=== PATIENT | male | born 1990 | race Caucasian/White ===

== ENCOUNTER 2016-08-23 20:16 | Emergency (ER) | payer MEDICAID ==
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
[2016-08-23 22:17] LABS: BASOPHIL % 0.2 % (0.0-0.4); Eosinophil % 1.6 % (0.00-5.0); Granulocytes % 52.5 % (36.0-66.0); Lymphocytes % 37.5 % (24.0-44.0); Mean Cell Volume 86.9 fl (78-100); Mean Corpuscular Hemoglobin 29.9 pg (26-32); Mean Platelet Volume 9.5 fl (6-9.5); Monocytes % 8.2 % (0.0-12.0); Platelet Count 131 K/mm3 (150-450); Red Blood Count 4.98 M/mm3 (4.1-5.6); Red Cell Distribution Width 13.1 % (11.5-14.0); White Blood Count 8.8 K/mm3 (4.0-10.5)
[2016-08-23 22:34] LABS: MAGNESIUM 1.9 mg/dL (1.8-2.4)
[2016-08-23 22:38] LABS: COMPLETE URINE MICROSCOPIC? NO; Collection Type CLEAN CATCH; Ph 8.5 (5-6)
[2016-08-23 22:39] LABS: ALBUMIN 3.9 g/dL (3.4-5.0); ALKALINE PHOSPHATASE 59 U/L (46-116); ANION GAP 11.1 MEQ/L (5-15); BILIRUBIN,TOTAL 0.2 mg/dL (0.2-1.0); BLOOD UREA NITROGEN 9 mg/dL (9-20); CHLORIDE 101 mEq/L (98-107); Carbon Dioxide 30.7 mEq/L (21-32); Glucose 93 MG/DL (70-110); Potassium 3.6 mEq/L (3.5-5.1); SGOT/AST 29 U/L (15-37); SGPT/ALT 77 U/L (12-78); SODIUM 139 mEq/L (136-145); Total Protein 7.4 gm/dL (6.4-8.2)
[2016-08-23 22:41] LABS: ACETAMINOPHEN < 2.0 ug/ml (10-30)
[2016-08-23] MEDS ORDERED: TYLENOL 325 MG PO ONE (23:05)
[2016-08-23] MEDS ORDERED: TYLENOL 325 MG ONE (23:07)
[2016-08-24] MEDS ORDERED: Valium 5 MG PO ONE (00:11)
[2016-08-24] MEDS ORDERED: Ativan 2 MG/1 ML VIAL IV ONE (09:09)
[2016-08-24] MEDS ORDERED: Ativan 2 MG/1 ML VIAL ONE (09:31)
[2016-08-24 12:11] VITALS: BP 140/89; PULSE 89; O2SAT 99
== END 2016-08-24 12:57 | disposition short-term general hospital (02) ==
LOC: ED 20:16
DX: R45.851 Suicidal ideations (principal); F22 Delusional disorders; F06.8 Other specified mental disorders due to known physiological condition; F20.9 Schizophrenia, unspecified
CPT/HCPCS: 36415; 80053; 80307; 80320; 81002; 82150; 83690; 83735; 83986; 85025; 96372; 99285; G0481; J2060; A9270-GY

== ENCOUNTER 2017-02-24 20:47 | Emergency (ER) | payer OTHER ==
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
[2017-02-24 21:38] LABS: BASOPHIL % 0.4 % (0.0-0.4); Eosinophil % 2.5 % (0.00-5.0); Granulocytes % 44.2 % (36.0-66.0); Lymphocytes % 42.3 % (24.0-44.0); Mean Cell Volume 86.5 fl (78-100); Mean Platelet Volume 10.2 fl (6-9.5); Monocytes % 10.6 % (0.0-12.0); Platelet Count 127 K/mm3 (150-450); Red Blood Count 5.65 M/mm3 (4.1-5.6); Red Cell Distribution Width 13.8 % (11.5-14.0); White Blood Count 7.6 K/mm3 (4.0-10.5)
[2017-02-24 21:39] LABS: Mean Corpuscular Hemoglobin 29.3 pg (26-32)
[2017-02-24] MEDS ORDERED: Sodium Chloride 0.9% 1000 ML 1,000 ML IV STA (21:43)
[2017-02-24] MEDS ORDERED: Sodium Chloride 0.9% 1000 ML 1,000 ML ONE (22:00)
[2017-02-24 22:02] LABS: ALBUMIN 4.1 g/dL (3.4-5.0); ALKALINE PHOSPHATASE 75 U/L (46-116); ANION GAP 13.1 MEQ/L (5-15); BLOOD UREA NITROGEN 10 mg/dL (9-20); CHLORIDE 105 mEq/L (98-107); Carbon Dioxide 29.2 mEq/L (21-32); ETHYL ALCOHOL < 0.010 % (0.00-0.01); Glucose 97 MG/DL (70-110); Potassium 3.5 mEq/L (3.5-5.1); SGOT/AST 34 U/L (15-37); SGPT/ALT 79 U/L (12-78); SODIUM 144 mEq/L (136-145); Total Protein 8.2 gm/dL (6.4-8.2)
[2017-02-24 22:05] LABS: ACETAMINOPHEN < 2.0 ug/ml (10-30)
[2017-02-24] MEDS ORDERED: Ativan 2 MG/1 ML VIAL IV ONE ×2 (22:44→23:11)
[2017-02-24] MEDS ORDERED: Ativan 2 MG/1 ML VIAL ONE ×2 (22:45→23:21)
[2017-02-24 22:58] LABS: Collection Type CLEAN CATCH
[2017-02-24 22:59] LABS: ADD URINE CULTURE? NO (NO); Bilirubin NEGATIVE (NEGATIVE); Blood NEGATIVE Ery/ul (0-5); COMPLETE URINE MICROSCOPIC? NO; Glucose NEGATIVE (NEGATIVE); Leukocyte Esterase NEGATIVE (NEGATIVE)
[2017-02-25] MEDS ORDERED: Ativan 2 MG/1 ML VIAL IV ONE (00:38)
[2017-02-25] MEDS ORDERED: Ativan 2 MG/1 ML VIAL ONE (00:41)
[2017-02-25 01:05] VITALS: BP 145/100; PULSE 105
[2017-02-25 01:10] VITALS: O2SAT 98
== END 2017-02-25 02:00 | disposition short-term general hospital (02) ==
LOC: ED 20:47
DX: F23 Brief psychotic disorder (principal); F20.0 Paranoid schizophrenia; F22 Delusional disorders; F19.10 Other psychoactive substance abuse, uncomplicated; R45.851 Suicidal ideations; I10 Essential (primary) hypertension; F41.9 Anxiety disorder, unspecified; F31.9 Bipolar disorder, unspecified
CPT/HCPCS: 36000; 36415; 80053; 80307; 81002; 85025; 93005; 96360; 96374; 96376; 99285; G0481; J2060

== ENCOUNTER 2017-04-06 16:30 | Emergency (ER) | payer OTHER ==
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
[2017-04-06] MEDS ORDERED: TYLENOL 325 MG ONE (17:04)
[2017-04-06] MEDS ORDERED: TYLENOL 325 MG PO STA (17:06)
[2017-04-06 17:13] LABS: BASOPHIL % 0.2 % (0.0-0.4); Eosinophil % 1.8 % (0.00-5.0); Granulocytes % 55.2 % (36.0-66.0); Lymphocytes % 32.3 % (24.0-44.0); Mean Cell Volume 86.1 fl (78-100); Mean Corpuscular Hemoglobin 29.9 pg (26-32); Mean Platelet Volume 9.5 fl (6-9.5); Monocytes % 10.5 % (0.0-12.0); Platelet Count 187 K/mm3 (150-450); Red Blood Count 5.81 M/mm3 (4.1-5.6); Red Cell Distribution Width 13.9 % (11.5-14.0); White Blood Count 12.4 K/mm3 (4.0-10.5)
[2017-04-06 17:32] LABS: Collection Type CLEAN CATCH
[2017-04-06 17:33] LABS: ADD URINE CULTURE? NO (NO); Bilirubin NEGATIVE (NEGATIVE); Blood NEGATIVE Ery/ul (0-5); COMPLETE URINE MICROSCOPIC? NO; Glucose NEGATIVE (NEGATIVE); Leukocyte Esterase NEGATIVE (NEGATIVE)
[2017-04-06 17:40] LABS: ALBUMIN 4.6 g/dL (3.4-5.0); ALKALINE PHOSPHATASE 89 U/L (46-116); ANION GAP 11.6 MEQ/L (5-15); BLOOD UREA NITROGEN 9 mg/dL (9-20); CHLORIDE 100 mEq/L (98-107); Carbon Dioxide 29.5 mEq/L (21-32); Glucose 87 MG/DL (70-110); Potassium 3.8 mEq/L (3.5-5.1); SGOT/AST 46 U/L (15-37); SGPT/ALT 85 U/L (12-78); SODIUM 137 mEq/L (136-145)
[2017-04-06 17:41] LABS: ACETAMINOPHEN < 2.0 ug/ml (10-30); ETHYL ALCOHOL < 0.010 % (0.00-0.01)
[2017-04-06] MEDS ORDERED: Nicoderm CQ 21 MG TOP ONE (18:10)
[2017-04-06] MEDS ORDERED: Nicoderm CQ 21 MG ONE (18:11)
[2017-04-06] MEDS ORDERED: Ativan 2 MG/1 ML VIAL IM ONE (18:26)
[2017-04-06] MEDS ORDERED: Ativan 2 MG/1 ML VIAL ONE (18:30)
[2017-04-06 23:43] VITALS: BP 142/93; PULSE 102; O2SAT 98
== END 2017-04-06 23:45 | disposition short-term general hospital (02) ==
LOC: ED 16:30
DX: F32.9 Major depressive disorder, single episode, unspecified (principal); R45.851 Suicidal ideations; F20.0 Paranoid schizophrenia; F19.10 Other psychoactive substance abuse, uncomplicated
CPT/HCPCS: 36415; 80053; 80307; 81002; 84443; 85025; 90791; 96372; 99285; G0481; J2060; Q3014; A9270-GY

== ENCOUNTER 2018-06-14 12:26 | Emergency (ER) | payer MEDICAID, OTHER ==
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
[2018-06-14 12:43] VITALS: BP 169/95; PULSE 102; O2SAT 100
[2018-06-14] MEDS ORDERED: XYLOCAINE 1% HCL 20 ML MDV ONE (13:08)
== END 2018-06-14 13:49 | disposition home or self-care (01) ==
LOC: ED 12:26
DX: S61.412A Laceration without foreign body of left hand, initial encounter (principal); I10 Essential (primary) hypertension; F41.9 Anxiety disorder, unspecified; F31.9 Bipolar disorder, unspecified; F20.0 Paranoid schizophrenia
CPT/HCPCS: 12001; 99283

== ENCOUNTER 2018-07-18 19:13 | Emergency (ER) | payer MEDICAID ==
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
[2018-07-18 19:56] LABS: BASOPHIL % 0.3 % (0.0-0.4); Basophil (Absolute #) 0.03 (0-0.4); Eosinophil % 3.9 % (0.00-5.0); Eosinophil (Absolute #) 0.37 (0-0.5); Granulocytes % 35.5 % (36.0-66.0); Hemoglobin 15.4 gm/dl (12.5-18.0); Lymphocyte (Absolute #) 4.92 (1.0-4.6); Lymphocytes % 51.5 % (24.0-44.0); Mean Corpuscular Hemoglobin 29.8 pg (26-32); Mean Corpuscular Hgb Concent. 34.2 g/dl (32-36); Mean Platelet Volume 9.5 fl (6-9.5); Monocyte (Absolute #) 0.84 (0.0-1.3); Monocytes % 8.8 % (0.0-12.0); Platelet Count 174 K/mm3 (150-450); Red Blood Count 5.17 M/mm3 (4.1-5.6); Red Cell Distribution Width 13.7 % (11.5-14.0); White Blood Count 9.6 K/mm3 (4.0-10.5)
[2018-07-18 20:07] LABS: ALBUMIN 4.4 g/dL (3.5-5.0); ALKALINE PHOSPHATASE 66 U/L (38-126); ANION GAP 13.3 MEQ/L (5-15); BLOOD UREA NITROGEN 13 mg/dL (9-20); CHLORIDE 104 mmol/L (98-107); Calcium 9.6 mg/dL (8.4-10.2); Carbon Dioxide 27 mmol/L (22-30); Creatinine 1 0.98 mg/dL (0.66-1.25); Glucose 88 mg/dL (74-106); SGOT/AST 38 U/L (17-59); SGPT/ALT 70 U/L (0-50); SODIUM 141 mmol/L (137-145); Total Protein 7.7 g/dL (6.3-8.2)
[2018-07-18 20:11] LABS: ACETAMINOPHEN < 10 ug/ml (10-30); ETHYL ALCOHOL < 10 mg/dL (0-10); SALICYLATE < 1.0 mg/dL (2-20)
[2018-07-18] MEDS ORDERED: Geodon 20 MG INJ IM ONE ×2 (20:24→20:27)
[2018-07-18 20:55] LABS: Appearance CLEAR (CLEAR); Bacteria NONE SEEN /HPF (NEGATIVE); Bilirubin NEGATIVE (NEGATIVE); Blood SMALL Ery/ul (0-5); Glucose NEGATIVE (NEGATIVE); Ketones NEGATIVE (NEGATIVE); Leukocyte Esterase SMALL (NEGATIVE); Mucus SLIGHT /HPF (NEGATIVE); Nitrite NEGATIVE (NEGATIVE); Protein,Urine Dip NEGATIVE (Negative); Specific Gravity 1.009 (1.005-1.025); Urobilinogen NEGATIVE mg/dL (0-1)
[2018-07-18 21:00] LABS: Amphetamine,Urine NEGATIVE (NEGATIVE); Barbiturate,Urine NEGATIVE (NEGATIVE); Benzodiazepine,Urine NEGATIVE (NEGATIVE); Cocaine,Urine NEGATIVE (NEGATIVE); Methadone,Urine NEGATIVE (NEGATIVE); Opiate,Urine NEGATIVE (NEGATIVE); PCP,Urine NEGATIVE (NEGATIVE); THC,Urine NEGATIVE (NEGATIVE)
[2018-07-18] MEDS ORDERED: KEFLEX 500 MG PO ONE (21:08)
[2018-07-18] MEDS ORDERED: KEFLEX 500 MG ONE (21:25)
[2018-07-18 21:33] VITALS: O2SAT 100
[2018-07-18 22:07] VITALS: PULSE 75
[2018-07-18 23:40] VITALS: BP 136/83
== END 2018-07-19 00:24 | disposition home or self-care (01) ==
LOC: ED 19:13
DX: F20.9 Schizophrenia, unspecified (principal); F20.0 Paranoid schizophrenia; R44.3 Hallucinations, unspecified; R45.851 Suicidal ideations; R45.850 Homicidal ideations; F41.9 Anxiety disorder, unspecified; F31.9 Bipolar disorder, unspecified
CPT/HCPCS: 36415; 80053; 80307; 81001; 84443; 85025; 87086; 93005; 96372; 99284; G0481; J3486; A9270-GY; G0480

== ENCOUNTER 2019-05-20 11:06 | Emergency (ER) | payer OTHER ==
[2019-05-20 11:42] VITALS: BP 150/107
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
[2019-05-20] MEDS ORDERED: BACTRIM DS TABLET PO ONE ×2 (11:49→11:54)
[2019-05-20] MEDS ORDERED: NORCO 5/325 MG PO ONE (11:49)
[2019-05-20] MEDS ORDERED: NORCO 5/325 MG ONE (11:54)
[2019-05-20 12:12] VITALS: PULSE 78; O2SAT 98
== END 2019-05-20 12:13 | disposition home or self-care (01) ==
LOC: ED 11:06
DX: L03.317 Cellulitis of buttock (principal); I10 Essential (primary) hypertension; Z72.0 Tobacco use; F41.9 Anxiety disorder, unspecified
CPT/HCPCS: 99283; A9270-GY

== ENCOUNTER 2019-07-16 16:59 | Emergency (ER) | payer OTHER ==
[2019-07-16] MEDS ORDERED: XYLOCAINE 1% HCL 20 ML MDV IJ ONE (17:00)
[2019-07-16] MEDS ORDERED: TORAdol 30 mg Injection IM ONE (17:37)
[2019-07-16] MEDS ORDERED: Adacel Vial IM ONE ×2 (18:25→18:40)
[2019-07-16] MEDS ORDERED: Rocephin 1000 MG INJ IM ONE (18:26)
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
[2019-07-16 18:35] VITALS: BP 128/93; PULSE 96; O2SAT 99
[2019-07-16] MEDS ORDERED: TORAdol 30 mg Injection ONE (18:39)
[2019-07-16] MEDS ORDERED: Rocephin 1000 MG INJ ONE (18:39)
--- NOTE | 2019-07-17 08:19 | XRAY ---
Indication: Pain and swelling. Comparison: None 3 views of the left 2nd finger demonstrates mild proximal soft tissue swelling. No other bony, articular, or soft tissue abnormalities.
== END 2019-07-16 19:11 | disposition home or self-care (01) ==
LOC: ED 16:59
DX: L03.012 Cellulitis of left finger (principal)
CPT/HCPCS: 73140; 90471; 90715; 96372; 99284; J0696; J1885

== ENCOUNTER 2019-09-20 22:31 | Emergency (ER) | payer OTHER ==
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
[2019-09-20 23:32] VITALS: BP 158/124; PULSE 90
[2019-09-20] MEDS ORDERED: TYLENOL 325 MG PO ONE (23:33)
[2019-09-20 23:34] VITALS: O2SAT 98
== END 2019-09-20 23:40 | disposition left against medical advice (07) ==
LOC: ED 22:31
DX: S09.90XA Unspecified injury of head, initial encounter (principal); S00.03XA Contusion of scalp, initial encounter; S01.01XA Laceration without foreign body of scalp, initial encounter; W22.8XXA Striking against or struck by other objects, initial encounter; Y93.89 Activity, other specified; Y92.89 Other specified places as the place of occurrence of the external cause; R51 Headache; I10 Essential (primary) hypertension; F31.9 Bipolar disorder, unspecified; F20.0 Paranoid schizophrenia; Z72.0 Tobacco use
CPT/HCPCS: 99283

== ENCOUNTER 2019-12-16 16:57 | Emergency (ER) | payer OTHER ==
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
[2019-12-16 17:56] LABS: Absolute Neutrophil Ct (ANC) 5.24 (1.4-6.9); BASOPHIL % 0.6 % (0.0-0.4); Basophil (Absolute #) 0.05 (0-0.4); Eosinophil (Absolute #) 0.26 (0-0.5); Hemoglobin 17.2 gm/dl (12.5-18.0); Lymphocyte (Absolute #) 2.38 (1.0-4.6); Lymphocytes % 27.5 % (24.0-44.0); Mean Cell Volume 89.6 fl (78-100); Mean Corpuscular Hemoglobin 30.8 pg (26-32); Mean Corpuscular Hgb Concent. 34.4 g/dl (32-36); Mean Platelet Volume 10.3 fl (7.5-11.0); Monocyte (Absolute #) 0.74 (0.0-1.3); Monocytes % 8.5 % (0.0-12.0); Neutrophil % 60.4 % (36.0-66.0); Platelet Count 166 K/mm3 (150-450); Red Blood Count 5.58 M/mm3 (4.1-5.6); Red Cell Distribution Width 13.3 % (11.5-14.0); White Blood Count 8.7 K/mm3 (4.0-10.5)
[2019-12-16 18:08] LABS: ALBUMIN 4.6 g/dL (3.5-5.0); ALKALINE PHOSPHATASE 80 U/L (38-126); ANION GAP 15.2 MEQ/L (5-15); BLOOD UREA NITROGEN 11 mg/dL (9-20); CHLORIDE 104 mmol/L (98-107); Calcium 9.5 mg/dL (8.4-10.2); Carbon Dioxide 22 mmol/L (22-30); Creatinine 1 0.82 mg/dL (0.66-1.25); EST GLOMERULAR FILTRATION RATE > 60.0 ML/MIN; Glucose 164 mg/dL (74-106); Potassium 3.6 mmol/L (3.5-5.1); SGOT/AST 76 U/L (17-59); SGPT/ALT 146 U/L (0-50); SODIUM 138 mmol/L (137-145); Total Protein 7.8 g/dL (6.3-8.2)
[2019-12-16] MEDS ORDERED: Ativan 1 MG PO ONE (18:10)
[2019-12-16] MEDS ORDERED: Ativan 1 MG ONE (18:12)
[2019-12-16 18:15] LABS: ACETAMINOPHEN < 10 ug/ml (10-30); ETHYL ALCOHOL < 10 mg/dL (0-10)
[2019-12-16 18:33] LABS: Amphetamine,Urine NEGATIVE (NEGATIVE); Barbiturate,Urine NEGATIVE (NEGATIVE); Benzodiazepine,Urine POSITIVE (NEGATIVE); Cocaine,Urine NEGATIVE (NEGATIVE); Methadone,Urine NEGATIVE (NEGATIVE); Opiate,Urine NEGATIVE (NEGATIVE); PCP,Urine NEGATIVE (NEGATIVE); THC,Urine NEGATIVE (NEGATIVE)
[2019-12-16 21:34] VITALS: O2SAT 98
[2019-12-16 22:10] VITALS: BP 156/120; PULSE 90
== END 2019-12-16 22:14 | disposition home or self-care (01) ==
LOC: ED 16:57
DX: F20.0 Paranoid schizophrenia (principal); F32.9 Major depressive disorder, single episode, unspecified
CPT/HCPCS: 36415; 80053; 80307; 85025; 93005; 99284; A9270-GY; G0480

== ENCOUNTER 2019-12-17 17:19 | Emergency (ER) | payer OTHER ==
[2019-12-17 17:46] LABS: Absolute Neutrophil Ct (ANC) 5.43 (1.4-6.9); BASOPHIL % 0.4 % (0.0-0.4); Basophil (Absolute #) 0.04 (0-0.4); Eosinophil (Absolute #) 0.27 (0-0.5); Hematocrit 50.6 % (42-50); Hemoglobin 17.4 gm/dl (12.5-18.0); Lymphocyte (Absolute #) 2.62 (1.0-4.6); Mean Cell Volume 88.9 fl (78-100); Mean Corpuscular Hemoglobin 30.6 pg (26-32); Mean Corpuscular Hgb Concent. 34.4 g/dl (32-36); Mean Platelet Volume 9.7 fl (7.5-11.0); Monocyte (Absolute #) 0.69 (0.0-1.3); Monocytes % 7.6 % (0.0-12.0); Platelet Count 157 K/mm3 (150-450); Red Blood Count 5.69 M/mm3 (4.1-5.6); Red Cell Distribution Width 13.3 % (11.5-14.0); White Blood Count 9.1 K/mm3 (4.0-10.5)
[2019-12-17 18:06] LABS: ALBUMIN 4.6 g/dL (3.5-5.0); ALKALINE PHOSPHATASE 78 U/L (38-126); ANION GAP 15.1 MEQ/L (5-15); BLOOD UREA NITROGEN 11 mg/dL (9-20); CHLORIDE 104 mmol/L (98-107); Calcium 9.7 mg/dL (8.4-10.2); Carbon Dioxide 24 mmol/L (22-30); Creatinine 1 0.77 mg/dL (0.66-1.25); EST GLOMERULAR FILTRATION RATE > 60.0 ML/MIN; Glucose 162 mg/dL (74-106); Potassium 3.6 mmol/L (3.5-5.1); SGOT/AST 81 U/L (17-59); SGPT/ALT 149 U/L (0-50); SODIUM 139 mmol/L (137-145); Total Protein 7.8 g/dL (6.3-8.2)
[2019-12-17 18:07] LABS: Amourphous Crystal FEW /HPF (NEGATIVE); Appearance CLOUDY (CLEAR); Bilirubin NEGATIVE (NEGATIVE); Blood NEGATIVE Ery/ul (0-5); Glucose NEGATIVE (NEGATIVE); Ketones NEGATIVE (NEGATIVE); Leukocyte Esterase SMALL (NEGATIVE); Nitrite NEGATIVE (NEGATIVE); Protein,Urine Dip 30 (Negative); Specific Gravity 1.017 (1.005-1.025); Urobilinogen NEGATIVE mg/dL (0-1)
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
[2019-12-17 18:14] LABS: Amphetamine,Urine NEGATIVE (NEGATIVE); Barbiturate,Urine NEGATIVE (NEGATIVE); Benzodiazepine,Urine POSITIVE (NEGATIVE); Cocaine,Urine NEGATIVE (NEGATIVE); Methadone,Urine NEGATIVE (NEGATIVE); Opiate,Urine NEGATIVE (NEGATIVE); PCP,Urine NEGATIVE (NEGATIVE); THC,Urine POSITIVE (NEGATIVE)
[2019-12-17 18:17] LABS: Bacteria NONE SEEN /HPF (NEGATIVE)
[2019-12-17 18:23] LABS: ACETAMINOPHEN < 10 ug/ml (10-30); ETHYL ALCOHOL < 10 mg/dL (0-10); SALICYLATE < 1.0 mg/dL (2-20)
[2019-12-17] MEDS ORDERED: TYLENOL EXTRA STRENGTH 500 MG PO PRN (18:54)
[2019-12-17] MEDS ORDERED: TYLENOL EXTRA STRENGTH 500 MG ONE (18:56)
[2019-12-17] MEDS ORDERED: TYLENOL EXTRA STRENGTH 500 MG PO STA (19:07)
[2019-12-17 21:06] VITALS: BP 158/133; PULSE 83; O2SAT 99
== END 2019-12-17 21:10 | disposition home or self-care (01) ==
LOC: ED 17:19
DX: F32.9 Major depressive disorder, single episode, unspecified (principal); R45.851 Suicidal ideations; Z79.899 Other long term (current) drug therapy; I10 Essential (primary) hypertension
CPT/HCPCS: 36415; 80053; 80307; 81001; 85025; 87086; 99284; A9270-GY; G0480

== ENCOUNTER 2020-01-11 15:32 | Emergency (ER) | payer OTHER ==
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
[2020-01-11 16:12] VITALS: BP 102/81; PULSE 92
[2020-01-11 17:57] VITALS: O2SAT 100
== END 2020-01-11 16:38 | disposition home or self-care (01) ==
LOC: ED 15:32
DX: L02.214 Cutaneous abscess of groin (principal); R10.30 Lower abdominal pain, unspecified; I10 Essential (primary) hypertension; F31.9 Bipolar disorder, unspecified; F41.9 Anxiety disorder, unspecified; F20.0 Paranoid schizophrenia
CPT/HCPCS: 99283

== ENCOUNTER 2020-01-17 21:36 | Emergency (ER) | payer OTHER ==
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
[2020-01-17] MEDS ORDERED: CLEOCIN 150 MG CAPSULE PO ONE (21:56)
[2020-01-17] MEDS ORDERED: CLEOCIN 150 MG CAPSULE ONE (21:58)
[2020-01-17] MEDS ORDERED: TORAdol 30 mg Injection IM ONE (22:15)
[2020-01-17 22:16] LABS: Amourphous Crystal FEW /HPF (NEGATIVE); Appearance SLIGHTLY CLOUDY (CLEAR); Bacteria RARE /HPF (NEGATIVE); Bilirubin NEGATIVE (NEGATIVE); Blood SMALL Ery/ul (0-5); Glucose NEGATIVE (NEGATIVE); Ketones NEGATIVE (NEGATIVE); Leukocyte Esterase MODERATE (NEGATIVE); Mucus SLIGHT /HPF (NEGATIVE); Nitrite NEGATIVE (NEGATIVE); Protein,Urine Dip 30 (Negative); Specific Gravity 1.006 (1.005-1.025); Urobilinogen NEGATIVE mg/dL (0-1); WBC 26-50 /HPF (0-5)
[2020-01-17] MEDS ORDERED: TORAdol 30 mg Injection ONE (22:20)
[2020-01-17 22:30] LABS: BASOPHIL % 0.4 % (0.0-0.4); Basophil (Absolute #) 0.04 (0-0.4); Eosinophil % 2.9 % (0.00-5.0); Eosinophil (Absolute #) 0.29 (0-0.5); Hematocrit 46.9 % (42-50); Hemoglobin 16.1 gm/dl (12.5-18.0); Lymphocyte (Absolute #) 4.11 (1.0-4.6); Lymphocytes % 40.5 % (24.0-44.0); Mean Cell Volume 89.2 fl (78-100); Mean Corpuscular Hemoglobin 30.6 pg (26-32); Mean Corpuscular Hgb Concent. 34.3 g/dl (32-36); Mean Platelet Volume 9.4 fl (7.5-11.0); Monocyte (Absolute #) 0.92 (0.0-1.3); Monocytes % 9.1 % (0.0-12.0); Neutrophil % 47.1 % (36.0-66.0); Platelet Count 202 K/mm3 (150-450); Red Blood Count 5.26 M/mm3 (4.1-5.6); Red Cell Distribution Width 13.2 % (11.5-14.0); White Blood Count 10.2 K/mm3 (4.0-10.5)
[2020-01-17] MEDS ORDERED: Rocephin 1000 MG INJ IM ONE (22:35)
[2020-01-17] MEDS ORDERED: Rocephin 1000 MG INJ ONE (22:40)
[2020-01-17 22:44] LABS: ALBUMIN 4.5 g/dL (3.5-5.0); ALKALINE PHOSPHATASE 59 U/L (38-126); AMYLASE 65 U/L (30-110); ANION GAP 13.3 MEQ/L (5-15); BLOOD UREA NITROGEN 9 mg/dL (9-20); CHLORIDE 106 mmol/L (98-107); Calcium 9.6 mg/dL (8.4-10.2); Carbon Dioxide 22 mmol/L (22-30); Creatinine 1 0.85 mg/dL (0.66-1.25); EST GLOMERULAR FILTRATION RATE > 60.0 ML/MIN; Glucose 147 mg/dL (74-106); LIPASE 79 U/L (23-300); Potassium 3.1 mmol/L (3.5-5.1); SGOT/AST 52 U/L (17-59); SODIUM 139 mmol/L (137-145); Total Protein 7.5 g/dL (6.3-8.2)
[2020-01-17 22:52] LABS: SGPT/ALT 89 U/L (0-50)
[2020-01-17] MEDS ORDERED: K-LYTE 25 MEQ PO ONE (23:15)
[2020-01-17] MEDS ORDERED: K-LYTE 25 MEQ ONE (23:18)
[2020-01-18 00:05] VITALS: BP 160/110; PULSE 95
[2020-01-18 00:06] VITALS: O2SAT 95
--- NOTE | 2020-01-18 09:18 | XRAY ---
Indication: Left flank pain. Dysuria. Multiple contiguous axial images obtained through the abdomen and pelvis without contrast as ordered. Comparison: CT abdomen/pelvis with contrast August 24, 2013. Lung bases are clear. Heart is not enlarged. Stomach is distended with food/fluid. Noncontrasted stomach and bowel loops appear nonobstructed. Normal air-filled appendix. New 1.2 cm left UPJ calculus with moderate hydronephrosis but no perinephric fluid. 2 additional left renal micro-calculi, largest lower pole measuring 4 mm. Right kidney demonstrates nonobstructing punctate calculus. No free fluid/air. Liver is now enlarged measuring 20 cm. Remaining liver, gallbladder, pancreas, spleen, adrenal glands, kidneys, ureters, bladder, and aorta appear unremarkable for noncontrast exam. Osseous structures intact. Impression: 1. New 1.2 cm left UPJ calculus producing obstructive uropathy as detailed. Additional bilateral renal micro-calculi. 2. Incidental new hepatomegaly. Comment: Preliminary interpretation was made by [facility]. No critical discrepancy.
== END 2020-01-18 00:13 | disposition home or self-care (01) ==
LOC: ED 21:36
DX: N39.0 Urinary tract infection, site not specified (principal); J02.9 Acute pharyngitis, unspecified; N23 Unspecified renal colic
CPT/HCPCS: 36415; 74176; 80053; 81001; 82150; 83690; 85025; 87040; 87086; 96372; 99284; J0696; J1885; A9270-GY

== ENCOUNTER 2020-02-01 14:07 | Emergency (ER) | payer OTHER ==
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
[2020-02-01] MEDS ORDERED: BACTRIM DS TABLET PO ONE (14:54)
[2020-02-01] MEDS ORDERED: MOTRIN 600 MG ONE (14:54)
[2020-02-01] MEDS ORDERED: NORCO 5/325 MG ONE (14:55)
[2020-02-01] MEDS: MOTRIN 600 MG PO ONE (14:56)
[2020-02-01] MEDS: NORCO 5/325 MG PO ONE (14:56)
[2020-02-01] MEDS: BACTRIM DS TABLET PO STA (14:56)
[2020-02-01 15:06] VITALS: BP 168/106; PULSE 86
[2020-02-01 15:08] VITALS: O2SAT 99
== END 2020-02-01 15:11 | disposition home or self-care (01) ==
LOC: ED 14:07
DX: L02.416 Cutaneous abscess of left lower limb (principal); R03.0 Elevated blood-pressure reading, without diagnosis of hypertension
CPT/HCPCS: 10060; 87070; 99284; A9270-GY

== ENCOUNTER 2020-11-22 15:59 | Emergency (ER) | payer OTHER ==
[2020-11-22] MEDS ORDERED: TORAdol 30 mg Injection IV ONE (16:28)
[2020-11-22] MEDS ORDERED: Sodium Chloride 0.9% 1000 ML 1,000 ML IV STA (16:28)
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
[2020-11-22] MEDS ORDERED: Sodium Chloride 0.9% 1000 ML 1,000 ML ONE (16:42)
[2020-11-22] MEDS ORDERED: TORAdol 30 mg Injection ONE (16:43)
[2020-11-22 16:44] LABS: Absolute Neutrophil Ct (ANC) 6.15 (1.4-6.9); BASOPHIL % 0.4 % (0.0-0.4); Basophil (Absolute #) 0.04 (0-0.4); Eosinophil % 2.1 % (0.00-5.0); Eosinophil (Absolute #) 0.22 (0-0.5); Hematocrit 47.8 % (42-50); Hemoglobin 16.4 gm/dl (12.5-18.0); Lymphocyte (Absolute #) 3.61 (1.0-4.6); Lymphocytes % 33.8 % (24.0-44.0); Mean Cell Volume 88.5 fl (78-100); Mean Corpuscular Hemoglobin 30.4 pg (26-32); Mean Corpuscular Hgb Concent. 34.3 g/dl (32-36); Mean Platelet Volume 9.8 fl (7.5-11.0); Monocyte (Absolute #) 0.65 (0.0-1.3); Monocytes % 6.1 % (0.0-12.0); Neutrophil % 57.6 % (36.0-66.0); Platelet Count 184 K/mm3 (150-450); Red Cell Distribution Width 13.2 % (11.5-14.0); White Blood Count 10.7 K/mm3 (4.0-10.5)
[2020-11-22 16:56] LABS: ALBUMIN 4.6 g/dL (3.5-5.0); ALKALINE PHOSPHATASE 57 U/L (38-126); ANION GAP 15.9 MEQ/L (5-15); BLOOD UREA NITROGEN 14 mg/dL (9-20); CHLORIDE 106 mmol/L (98-107); Calcium 9.7 mg/dL (8.4-10.2); Carbon Dioxide 22 mmol/L (22-30); Creatinine 1 0.91 mg/dL (0.66-1.25); EST GLOMERULAR FILTRATION RATE > 60.0 ML/MIN; Glucose 102 mg/dL (74-106); LIPASE 100 U/L (23-300); Potassium 4.5 mmol/L (3.5-5.1); SGOT/AST 49 U/L (17-59); SGPT/ALT 82 U/L (0-50); SODIUM 140 mmol/L (137-145); Total Protein 7.9 g/dL (6.3-8.2)
[2020-11-22 17:05] LABS: Appearance CLEAR (CLEAR); Bacteria RARE /HPF (NEGATIVE); Bilirubin NEGATIVE (NEGATIVE); Blood NEGATIVE Ery/ul (0-5); Glucose NEGATIVE (NEGATIVE); Ketones NEGATIVE (NEGATIVE); Leukocyte Esterase TRACE (NEGATIVE); Mucus SLIGHT /HPF (NEGATIVE); Nitrite NEGATIVE (NEGATIVE); Protein,Urine Dip NEGATIVE (Negative); RBC 0-2 /HPF (0-2); Specific Gravity 1.016 (1.005-1.025); Urobilinogen NEGATIVE mg/dL (0-1)
--- NOTE | 2020-11-22 17:06 | XRAY ---
Indication: Left flank pain. History kidney stones. Multiple contiguous axial images obtained through the abdomen and pelvis without contrast using renal stone protocol. Comparison: January 17, 2020. Lung bases demonstrates minimal dependent atelectasis and minimal lingula fibrosis/scarring. Heart not enlarged. Stable 0.9 x 1.2 x 1.5 cm left UPJ calculus again with moderate hydronephrosis but no perinephric fluid. Again two left renal and one right renal punctate calculi. No free fluid/air. Noncontrasted stomach and bowel loops nonobstructed again with normal appendix. Remaining liver, gallbladder, pancreas, spleen, adrenal glands, kidneys, ureters, bladder, and aorta are unremarkable for noncontrast exam. Osseous structures intact. Impression: Grossly stable left UPJ calculus again producing obstructive uropathy as detailed. Also stable bilateral renal micro-calculi.
[2020-11-22] MEDS ORDERED: ROCEPHIN 2 Gm-D5w 50ML BAG** 2 G/50 ML IVPB IV STA (17:27)
[2020-11-22] MEDS ORDERED: MORPHINE SULFATE 4 MG INJ IV ONE (17:52)
[2020-11-22] MEDS ORDERED: Zofran 4 MG/2 ML VIAL IV ONE (17:52)
[2020-11-22] MEDS ORDERED: LEVOFLOXACIN 750MG/150ML D5W 750 MG/150 ML BAG IV STA (17:53)
[2020-11-22] MEDS ORDERED: LEVOFLOXACIN 750MG/150ML D5W 750 MG/150 ML BAG IV ONE (17:58)
[2020-11-22] MEDS ORDERED: Zofran 4 MG/2 ML VIAL ONE (17:58)
[2020-11-22] MEDS ORDERED: MORPHINE SULFATE 4 MG INJ ONE (17:58)
[2020-11-22 19:27] VITALS: BP 159/97; PULSE 76; O2SAT 98
== END 2020-11-22 19:29 | disposition home or self-care (01) ==
LOC: ED 15:59
DX: N13.2 Hydronephrosis with renal and ureteral calculous obstruction (principal)
CPT/HCPCS: 36415; 74176; 80053; 81001; 83690; 85025; 96360; 96374; 96375; 99284; J1885; J1956; J2270; J2405

== ENCOUNTER 2020-12-04 09:57 | Emergency (ER) | payer OTHER ==
[2020-12-04] MEDS ORDERED: Zofran 4 MG/2 ML VIAL IV ONE (10:15)
[2020-12-04] MEDS ORDERED: Sodium Chloride 0.9% 1000 ML 1,000 ML IV STA (10:15)
[2020-12-04] MEDS ORDERED: MORPHINE SULFATE 4 MG INJ IV ONE (10:15)
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
[2020-12-04] MEDS ORDERED: MORPHINE SULFATE 4 MG INJ ONE (10:35)
[2020-12-04] MEDS ORDERED: Zofran 4 MG/2 ML VIAL ONE (10:35)
[2020-12-04] MEDS ORDERED: Sodium Chloride 0.9% 1000 ML 1,000 ML ONE (10:35)
[2020-12-04 10:43] LABS: Appearance SLIGHTLY CLOUDY (CLEAR); Bacteria FEW /HPF (NEGATIVE); Bilirubin NEGATIVE (NEGATIVE); Blood LARGE Ery/ul (0-5); Glucose NEGATIVE (NEGATIVE); Ketones NEGATIVE (NEGATIVE); Leukocyte Esterase MODERATE (NEGATIVE); Nitrite NEGATIVE (NEGATIVE); Protein,Urine Dip 100 (Negative); Specific Gravity 1.016 (1.005-1.025); Urobilinogen NEGATIVE mg/dL (0-1); WBC >100 /HPF (0-5)
[2020-12-04 10:44] LABS: Absolute Neutrophil Ct (ANC) 5.78 (1.4-6.9); BASOPHIL % 0.4 % (0.0-0.4); Basophil (Absolute #) 0.05 (0-0.4); Eosinophil % 1.3 % (0.00-5.0); Eosinophil (Absolute #) 0.15 (0-0.5); Hematocrit 49.3 % (42-50); Hemoglobin 16.9 gm/dl (12.5-18.0); Lymphocyte (Absolute #) 4.48 (1.0-4.6); Lymphocytes % 38.6 % (24.0-44.0); Mean Cell Volume 90.3 fl (78-100); Mean Corpuscular Hgb Concent. 34.3 g/dl (32-36); Mean Platelet Volume 9.3 fl (7.5-11.0); Monocyte (Absolute #) 1.16 (0.0-1.3); Neutrophil % 49.7 % (36.0-66.0); Platelet Count 166 K/mm3 (150-450); Red Blood Count 5.46 M/mm3 (4.1-5.6); Red Cell Distribution Width 13.6 % (11.5-14.0); White Blood Count 11.6 K/mm3 (4.0-10.5)
[2020-12-04 10:44] LABS: RBC >101 /HPF (0-2)
[2020-12-04 10:53] LABS: ALBUMIN 4.6 g/dL (3.5-5.0); ALKALINE PHOSPHATASE 58 U/L (38-126); ANION GAP 14.6 MEQ/L (5-15); BLOOD UREA NITROGEN 18 mg/dL (9-20); CHLORIDE 103 mmol/L (98-107); Calcium 9.4 mg/dL (8.4-10.2); Carbon Dioxide 24 mmol/L (22-30); Creatinine 1 0.94 mg/dL (0.66-1.25); EST GLOMERULAR FILTRATION RATE > 60.0 ML/MIN; Glucose 92 mg/dL (74-106); LIPASE 57 U/L (23-300); Potassium 3.7 mmol/L (3.5-5.1); SGOT/AST 30 U/L (17-59); SGPT/ALT 46 U/L (0-50); SODIUM 138 mmol/L (137-145); Total Protein 7.6 g/dL (6.3-8.2)
[2020-12-04] MEDS ORDERED: TORAdol 30 mg Injection IM ONE (12:27)
[2020-12-04] MEDS ORDERED: TORAdol 30 mg Injection ONE (12:29)
[2020-12-04] MEDS ORDERED: TORAdol 30 mg Injection IV ONE (12:31)
[2020-12-04] MEDS ORDERED: ROCEPHIN 2 Gm-D5w 50ML BAG** 2 G/50 ML IVPB IV STA (12:40)
[2020-12-04] MEDS ORDERED: ROCEPHIN 2 Gm-D5w 50ML BAG** 2 G/50 ML IVPB IV ONE (13:05)
[2020-12-04 13:42] VITALS: BP 131/88; PULSE 58; O2SAT 99
--- NOTE | 2020-12-04 18:25 | XRAY ---
Indication: Left flank pain. Hematuria. Multiple contiguous axial images obtained through the abdomen and pelvis without without contrast using renal stone protocol. Comparison: November 22, 2020. Lung bases clear of infiltrate and effusion. Heart not enlarged. New left double-J ureteral stent catheter in good position. 1.1 cm calcification now seen proximal left ureter, approximately L3 level. Remaining left kidney demonstrates grossly stable punctate calculi and mild hydronephrosis without perinephric fluid. Stable nonobstructing right renal punctate calculus. Noncontrast stomach and bowel loops remain nonobstructed. Remaining liver, gallbladder, pancreas, spleen, adrenal glands, bladder, and aorta are unremarkable for noncontrast exam. Impression: New left double-J ureteral stent catheter in good position. 1.1 cm calculus proximal left ureter with persistent mild left hydronephrosis and additional bilateral renal micro-calculi. Comment: Preliminary interpretation made by C. No critical discrepancy
== END 2020-12-04 13:41 | disposition home or self-care (01) ==
LOC: ED 09:57
DX: N39.0 Urinary tract infection, site not specified (principal); R10.9 Unspecified abdominal pain
CPT/HCPCS: 36000; 36415; 74176; 80053; 81001; 83690; 85025; 87086; 96374; 96375; 99284; J0696; J1885; J2270; J2405

== ENCOUNTER 2020-12-21 12:52 | Emergency (ER) | payer OTHER ==
[2020-12-21] MEDS ORDERED: TORAdol 30 mg Injection IM ONE (14:02)
[2020-12-21] MEDS ORDERED: TORAdol 30 mg Injection ONE (14:26)
--- NOTE | 2020-12-21 14:37 | XRAY ---
Indication: Left abdomen pain. Hematuria. Multiple contiguous images obtained through the abdomen and pelvis without contrast. Comparison: December 04, 2020. Lung bases remain clear. Heart not enlarged. Noncontrasted stomach and bowel loops remain nonobstructed. Stable left double-J ureteral stent catheter, 1.1 cm proximal left ureteral calculus approximately L3, and mild left hydronephrosis. Stable nonobstructing bilateral renal micro-calculi. No free fluid/air. Remaining liver, gallbladder, pancreas, spleen, adrenal glands, bladder, and aorta are unremarkable for noncontrast exam. Impression: Stable CT abdomen/pelvis without contrast exam again demonstrating left double-J ureteral stent catheter, 1.1 cm proximal left ureter calculus, mild left hydronephrosis, and additional bilateral renal micro-calculi.
[2020-12-21 15:34] LABS: BASOPHIL % 0.2 % (0.0-0.4); Basophil (Absolute #) 0.02 (0-0.4); Eosinophil % 1.5 % (0.00-5.0); Eosinophil (Absolute #) 0.15 (0-0.5); Hematocrit 50.6 % (42-50); Hemoglobin 17.2 gm/dl (12.5-18.0); Lymphocyte (Absolute #) 2.18 (1.0-4.6); Lymphocytes % 21.4 % (24.0-44.0); Mean Cell Volume 89.9 fl (78-100); Mean Corpuscular Hemoglobin 30.6 pg (26-32); Mean Platelet Volume 10.5 fl (7.5-11.0); Monocyte (Absolute #) 0.72 (0.0-1.3); Monocytes % 7.1 % (0.0-12.0); Neutrophil % 69.8 % (36.0-66.0); Platelet Count 186 K/mm3 (150-450); Red Blood Count 5.63 M/mm3 (4.1-5.6); Red Cell Distribution Width 13.2 % (11.5-14.0); White Blood Count 10.2 K/mm3 (4.0-10.5)
[2020-12-21] MEDS ORDERED: Hydromorphone 1 mg/ml Injection IV ONE (15:36)
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
[2020-12-21 15:38] LABS: ALBUMIN 4.8 g/dL (3.5-5.0); ALKALINE PHOSPHATASE 67 U/L (38-126); ANION GAP 13.3 MEQ/L (5-15); BLOOD UREA NITROGEN 13 mg/dL (9-20); CHLORIDE 105 mmol/L (98-107); Carbon Dioxide 26 mmol/L (22-30); Creatinine 1 1.01 mg/dL (0.66-1.25); EST GLOMERULAR FILTRATION RATE > 60.0 ML/MIN; Glucose 95 mg/dL (74-106); Potassium 5.2 mmol/L (3.5-5.1); SGOT/AST 43 U/L (17-59); SGPT/ALT 69 U/L (0-50); SODIUM 140 mmol/L (137-145)
[2020-12-21 15:39] LABS: Appearance SLIGHTLY CLOUDY (CLEAR); Bilirubin NEGATIVE (NEGATIVE); Blood SMALL Ery/ul (0-5); Glucose NEGATIVE (NEGATIVE); Ketones NEGATIVE (NEGATIVE); Leukocyte Esterase SMALL (NEGATIVE); Mucus SLIGHT /HPF (NEGATIVE); Nitrite NEGATIVE (NEGATIVE); Protein,Urine Dip 100 (Negative); RBC 26-50 /HPF (0-2); Specific Gravity 1.016 (1.005-1.025); Urobilinogen NEGATIVE mg/dL (0-1)
[2020-12-21 15:42] LABS: Bacteria RARE /HPF (NEGATIVE)
[2020-12-21] MEDS ORDERED: Hydromorphone 1 mg/ml Injection ONE (15:42)
[2020-12-21 16:10] VITALS: BP 140/90; PULSE 64
[2020-12-21 16:14] VITALS: O2SAT 100
== END 2020-12-21 16:12 | disposition home or self-care (01) ==
LOC: ED 12:52
DX: N20.1 Calculus of ureter (principal); F20.0 Paranoid schizophrenia
CPT/HCPCS: 36415; 74176; 80053; 81001; 85025; 87086; 96372; 96374; 99284; J1170; J1885

== ENCOUNTER 2021-06-07 17:59 | Emergency (ER) | payer OTHER ==
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
[2021-06-07] MEDS ORDERED: Ativan 2 MG/1 ML VIAL IM ONE (18:25)
[2021-06-07 18:27] LABS: Absolute Neutrophil Ct (ANC) 5.11 (1.4-6.9); Basophil (Absolute #) 0.05 (0-0.4); Eosinophil (Absolute #) 0.31 (0-0.5); Hematocrit 49.1 % (42-50); Hemoglobin 16.9 gm/dl (12.5-18.0); Lymphocyte (Absolute #) 3.97 (1.0-4.6); Mean Cell Volume 88.8 fl (78-100); Mean Corpuscular Hemoglobin 30.6 pg (26-32); Mean Corpuscular Hgb Concent. 34.4 g/dl (32-36); Mean Platelet Volume 9.5 fl (7.5-11.0); Monocyte (Absolute #) 1.02 (0.0-1.3); Monocytes % 9.8 % (0.0-12.0); Neutrophil % 48.7 % (36.0-66.0); Platelet Count 204 K/mm3 (150-450); Red Blood Count 5.53 M/mm3 (4.1-5.6); Red Cell Distribution Width 13.5 % (11.5-14.0); White Blood Count 10.5 K/mm3 (4.0-10.5)
[2021-06-07] MEDS ORDERED: Ativan 2 MG/1 ML VIAL ONE (18:35)
[2021-06-07 18:38] LABS: ACETAMINOPHEN 17 ug/ml (10-30); ALBUMIN 4.7 g/dL (3.5-5.0); ALKALINE PHOSPHATASE 72 U/L (38-126); ANION GAP 17.5 MEQ/L (5-15); BLOOD UREA NITROGEN 27 mg/dL (9-20); CHLORIDE 110 mmol/L (98-107); Calcium 9.5 mg/dL (8.4-10.2); Creatinine 1 0.93 mg/dL (0.66-1.25); EST GLOMERULAR FILTRATION RATE > 60.0 ML/MIN; ETHYL ALCOHOL < 10 mg/dL (0-10); Glucose 123 mg/dL (74-106); Potassium 3.8 mmol/L (3.5-5.1); SALICYLATE < 1.0 mg/dL (2-20); SGOT/AST 34 U/L (17-59); SGPT/ALT 54 U/L (0-50); SODIUM 140 mmol/L (137-145)
[2021-06-07 18:45] LABS: Carbon Dioxide 16 mmol/L (22-30)
[2021-06-07] MEDS ORDERED: Sodium Chloride 0.9% 1000 ML 1,000 ML IV STA (18:51)
[2021-06-07] MEDS ORDERED: Sodium Chloride 0.9% 1000 ML 1,000 ML ONE (19:21)
[2021-06-07 19:25] LABS: COVID AG -BINAX NOW RAPID TEST NEGATIVE (NEGATIVE)
[2021-06-07] MEDS ORDERED: NORCO 5/325 MG PO ONE (20:00)
[2021-06-07] MEDS ORDERED: NORCO 5/325 MG ONE (20:02)
[2021-06-07 20:08] LABS: Appearance CLEAR (CLEAR); Bilirubin NEGATIVE (NEGATIVE); Blood MODERATE Ery/ul (0-5); Glucose NEGATIVE (NEGATIVE); Ketones NEGATIVE (NEGATIVE); Leukocyte Esterase NEGATIVE (NEGATIVE); Mucus SLIGHT /HPF (NEGATIVE); Nitrite NEGATIVE (NEGATIVE); Protein,Urine Dip NEGATIVE (Negative); RBC 51-100 /HPF (0-2); Specific Gravity 1.028 (1.005-1.025); Urobilinogen 2 mg/dL (0-1)
[2021-06-07 20:20] LABS: Barbiturate,Urine NEGATIVE (NEGATIVE); Benzodiazepine,Urine NEGATIVE (NEGATIVE); Cocaine,Urine NEGATIVE (NEGATIVE); Methadone,Urine NEGATIVE (NEGATIVE); Opiate,Urine NEGATIVE (NEGATIVE); PCP,Urine NEGATIVE (NEGATIVE); THC,Urine POSITIVE (NEGATIVE)
[2021-06-07 20:57] LABS: Amphetamine,Urine POSITIVE (NEGATIVE)
[2021-06-07 23:27] VITALS: BP 130/90; PULSE 84; O2SAT 99
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
== END 2021-06-07 23:27 | disposition short-term general hospital (02) ==
LOC: ED 17:59
DX: R44.0 Auditory hallucinations (principal); R45.851 Suicidal ideations; F41.9 Anxiety disorder, unspecified; F32.A Depression, unspecified; M25.511 Pain in right shoulder; V18.4XXA Pedal cycle driver injured in noncollision transport accident in traffic accident, initial encounter; Y93.55 Activity, bike riding; Z72.0 Tobacco use; Z79.899 Other long term (current) drug therapy
CPT/HCPCS: 36000; 36415; 73030; 80053; 80307; 81001; 85025; 93005; 93041; 96372; 99000; 99285; J2060; A9270-GY; G0480